=== PATIENT | male | born 1990 ===

== ENCOUNTER 2024-07-19 11:07 | Emergency (ER) | payer SELFPAY ==
[2024-07-19 11:10] VITALS: BP 117/58; PULSE 90; RESP 17; TEMP 36.6; O2SAT 100
--- NOTE | 2024-07-19 11:16 | PC.NURSE ---
Pt reports dental pain to left lower that radiates to left jaw, mild swelling noted. Reports unrelieved with Tyl/Ibuprofen
--- NOTE | 2024-07-19 12:46 | ED.DENTAL ---
HPI - Dental/Oral General Chief complaint: Dental/Oral Stated complaint: dental Time Seen by Provider: 07/19/24 11:28 History of Present Illness HPI Narrative: Patient is a 33-year-old male who presents to the emergency department this afternoon complaining of left sided dental pain. Patient states that approximately 1 week ago he had his left lower wisdom tooth extracted. He was told that he can take ibuprofen and/or Tylenol as needed for pain and patient states that he has been taking ibuprofen for the pain which has been controlling his but not completely. Patient states that he started to notice that there is a small piece of to that he can palpate in the region and feels as though when the was deemed tooth was extracted a small fragment was missed. Patient called his dentist and was scheduled for an appointment in 2.5 weeks. Patient states that He wants a referral to an oral surgeon as the dental clinic that he went to which offers free dental care rarely has a dental surgeon and he liked out the time that he went that 1 of the dentists were willing to extract the tooth. Denies any fevers or chills at home. No additional symptoms or concerns at this time. Related Data Allergies Allergy/AdvReac Type Severity Reaction Status Date / Time No Known Allergies Allergy Verified 07/19/24 11:12 Review of Systems Review of Systems: All systems are reviewed and are negative unless stated otherwise in the HPI. Exam Narrative: General: Alert, awake, afebrile, in no acute distress. HEENT: PERRL, no rhinorrhea, no post nasal drip, oropharynx clear, left lower wisdom to area appears to be urethritis, no evidence of abscess or pustular drainage, small tooth fragment embedded in the medial aspect of the gum. Cardiovascular: Regular rate and rhythm, no murmurs, rubs or gallops, no peripheral edema. Respiratory: Clear to auscultation bilaterally, no tachypnea, no wheezing, no rhonchi, no rubs, no respiratory distress. Abdomen: Soft, nontender, nondistended, no rebound, no guarding, no peritoneal signs. Musculoskeletal: No joint swelling or deformity, normal muscle tone. Skin: No rashes or petechia, no signs of infection. Neurological: Alert and oriented to person, place, and time. Follows all commands. No focal deficits, speech is clear and fluent. Course Vital Signs Vital signs: Vital Signs Temperature 97.9 F 07/19/24 11:10 Pulse Rate 90 07/19/24 11:10 Respiratory Rate 17 07/19/24 11:10 Blood Pressure 117/58 L 07/19/24 11:10 Pulse Oximetry 100 07/19/24 11:10 Oxygen Delivery Room Air 07/19/24 11:10 Temperature 98.1 F 07/19/24 12:53 Pulse Rate 89 07/19/24 12:53 Respiratory Rate 16 07/19/24 12:53 Blood Pressure 110/70 07/19/24 12:53 Pulse Oximetry 100 07/19/24 12:53 Oxygen Delivery Room Air 07/19/24 11:10 MDM - Dental/Oral MDM Narrative Medical decision making narrative: The patient was evaluated by myself in the emergency department. History is obtained from patient who is an independent historian and physical exam was performed. External medical records were reviewed at this time. Patient was provided with a list of dental surgeons per his request. Patient also informed that he will be placed on an oral antibiotic to prevent any infection and patient is agreeable. Patient states that his pain has been controlled with ibuprofen and Tylenol and he was instructed to continue with his current pain regimen. Differential diagnosis considerations include dental caries, dental abscess, retained tooth fragment. Comorbidities impacting this visit include none. I have evaluated and discussed social determinants of health with the patient that could potentially impact subsequent diagnosis and treatment plans. On repeat assessment of the patient, reevaluation revealed that the patient is doing well and is in no acute distress. Patient symptoms have improved since he arrived to our [facility]
[2024-07-19 12:53] VITALS: BP 110/70; PULSE 89; RESP 16; TEMP 36.7; O2SAT 100
== END 2024-07-19 12:55 | disposition home or self-care (01) ==
PROVIDERS: Emergency Provider Emergency Medicine
DX: K08.89 Other specified disorders of teeth and supporting structures (principal)
CPT/HCPCS: 99283

== ENCOUNTER 2025-01-02 21:54 | Emergency (ER) | payer SELFPAY ==
[2025-01-02 21:56] VITALS: BP 114/76; PULSE 88; RESP 18; TEMP 36.6; O2SAT 99
--- OUTSIDE RECORDS SUMMARY | 2025-01-02 21:56 | XMS_ITS | Continuity of Care Document ---
Author Organization [facility] Address [address] [place] [address] Phone Care Team Providers Care Network Operations Center Technician Name Role Phone Gina Sanford Unavailable Unavailable Procedures Procedure Date Diagnostic Casts No Charge Screening For Sleep Apnea Periodontal Scaling & Root Planing, 4+ t eeth, per quadrant Periodontal Scaling & Root Planing, 4+ t eeth, per quadrant Periodontal Scaling & Root Planing, 4+ t eeth, per quadrant Periodontal Scaling & Root Planing, 4+ t eeth, per quadrant Oral hygiene instruction Intra-Oral - Complete Series Of Radiogra phic Images Comprehensive Oral Evaluation-New/Est Pt Periodontal Risk Assessment Caries Risk Assess & Doc High Risk Oral Cancer Risk Assessment Oral/facial 2D photo images Screening For Sleep Apnea Surgical extr erupted tooth Surgical extr erupted tooth Limit Oral Evaluation- problem focused D Exempt From Sealant Measure Periapical Radiographic, first Image Sep Limit Oral Evaluation- problem focused S Periapical Radiographic, first Image Jun Dental Bitewing Radiographic, One Image Advance Directives Directive Yes / No Effective Date File Name No Information Encounters Encounter Description Practice Location Reason(s) For Visit Diagnoses Date Provider Providers Copied on Encounter [facility] , [address], [place], [place], [id number], [place] tel:[phone] [facility] Encounter for dental exam and cleaning w abnormal findings 5 Juvenal Fuentes. [address], [place], [place], [address] . tel:[phone] Referring Provider: Joselin Spangler, [address], [place], [address] . tel:[phone] [facility] , [address], [place], [place], [address], [place] tel:[phone] [facility] Chronic periodontitis, localized, moderateChronic periodontitis, generalized, severe 5 Juvenal Fuentes. [address], [place], [place], [id number] . tel:[phone] Referring Provider: Joselin Spangler, [address], [place], [address] . tel:[phone] [facility] , [address], [place], [place], [address], [place] tel:[phone] [facility] Chronic periodontitis, generalized, moderate 5 Juvenal Fuentes. [address], [place], [place], [address] . tel:[phone] Referring Provider: Joselin Spangler, [address], [place], [address] . tel:[phone] [facility] , [address], [place], [place], [address], [place] tel:[phone] [facility] Encounter for dental exam and cleaning w abnormal findings 5 Juvenal Fuentes. [address], [place], [place], [address] . tel:[phone] [facility] , [address], [place], [place], [address], [place] tel:[phone] [facility] Dental caries on pit and fissure surface penetrat into pulp 4 Sravan Ventura. [address], [place], [place], [address] . tel:[phone] Referring Provider: Mayco Henson, [address], [place], [address] . tel:[phone] sulting Provider: Lorenzo Hinson, [address], [place], [address] . tel:[phone] [facility] , [address], [id number], tel:[phone] [facility] Encounter for dental exam and cleaning w abnormal findings Dec-0 4 Trevor Rodriguez. [address], [id number] . tel:[phone] Referring Provider: Michael Murray, [address] [address], [place], [address] . tel:[phone] [facility] , [address], [id number], tel:[phone] [facility] Encounter for dental exam and cleaning w abnormal findingsEncounter for dental exam and cleaning w/o abnormal findings Jun-2 4 Marin Flores. [address], [id number] . tel:[phone] Referring Provider: Sandra Funes, [address] [address], [place], [address] . tel:[phone] Family History Family Member Type Diagnosis Age At Onset No Information Payers Payer name Insurance type Covered alliance party ID Authoriza tion(s) No Information Social History Type Description Quantity Date Captured Comments Sex Male Smoking Status No Information Chief Complaint And Reason For Visit No Information Reason For Referral Reason For Referral No Information History Of Present Illness Encounter Date Complaint History Of Prese nt Illness No Information Functional Status Date Functional Assessmen t No Information Instructions Date Instruction Additional Infor mation No Information Assessments Type Assessment Date No Information Patient Care Teams Name Effective Dates (start - stop) Status Members No Information
--- OUTSIDE RECORDS SUMMARY | 2025-01-02 22:09 | XMS_ITS | Continuity of Care Document ---
Author Organization [facility] Address [address] [place] [address] Phone Care Team Providers Care Chest Painting And Sealing Supervisor Name Role Phone Gina Sanford Unavailable Unavailable [...] Diagnoses Date Provider Providers Copied on Encounter [facility] , [address], [place], [place], [address], [place] tel:[phone] [facility] Encounter for dental exam and cleaning w abnormal findings 5 Juvenal Fuentes. [address], [place], [place], [address] . tel:[phone] Referring Provider: Joselin Spangler, [address], [place], [address] . tel:[phone] [facility] , [address], [place], [place], [address], [place] tel:[phone] [facility] Chronic periodontitis, localized, moderateChronic periodontitis, generalized, severe 5 Juvenal Fuentes. [address], [place], [place], [address] . tel:[phone] Referring Provider: Joselin Spangler, [address], [place], [address] . tel:[phone] [facility] , [address], [place], [place], [address], [place] tel:[phone] [facility] Chronic periodontitis, generalized, moderate 5 Juvenal Fuentes. [address], [place], [place], [address] . tel:[phone] Referring Provider: Joselin Spangler, [address], [place], [address] . tel:[phone] [facility] , [address], [place], [place], [address], [place] tel:[phone] [facility] Encounter for dental exam and cleaning w abnormal findings 5 Juvenal Fuentes. [address], [place], [place], [address] . tel:[phone] [facility] , [address], [place], [place], [address], [place] tel:[phone] [facility] Dental caries on pit and fissure surface penetrat into pulp 4 Sravan Ventura. [address], [place], [place], [address] . tel:[phone] Referring Provider: Mayco Henson, [address], [place], [address] . tel:[phone] sulting Provider: Lorenzo Hinson, [address], [place], [address] . tel:[phone] [facility] , [address], [id number], tel:[phone] [facility] Encounter for dental exam and cleaning w abnormal findings Dec-0 4 Trevor Rodriguez. [address], [id number] . tel:[phone] Referring Provider: Michael Murray, [address] [address], [place], [address] . tel:[phone] [facility] , [address], [id number], tel:[phone] [facility] Encounter for dental exam and cleaning w abnormal findingsEncounter for dental exam and cleaning w/o abnormal findings Jun-2 4 Marin Flores. [address], [id number] . tel:[phone] Referring Provider: Sandra Funes, [address] [address], [place], [address] . tel:[phone] Family History Family Member Type Diagnosis Age [...]
--- NOTE | 2025-01-02 22:18 | ED.URI ---
HPI - URI/Sore Throat General Chief Complaint: Upper Respiratory Infection Stated Complaint: Fever, cough, body aches x 3 days Time Seen by Provider: 01/02/25 22:05 Source: patient Mode of arrival: ambulatory Limitations: no limitations History of Present Illness HPI Narrative: This is a 34-year-old male with history of migraines, who presents to the emergency department complaining of diffuse body aches, fevers, cough productive of nonbloody sputum for the past 3 days. He states his child has been sick. He denies any other known sick contacts or recent travel. He denies nausea, vomiting or abdominal pain. His symptoms are improved briefly with ibuprofen and Tylenol. He has no other complaints at this time. Related Data Allergies Allergy/AdvReac Type Severity Reaction Status Date / Time No Known Allergies Allergy Verified 01/02/25 21:55 Review of Systems Review of Systems: All systems reviewed & are unremarkable except as noted in HPI and below PMFSH Past Medical History Medical History Migraine Surgical History Surgical History No significant past surgical history Social History Social History Smoking status: Current some day smoker Alcohol intake: never Substance use: never Exam Narrative: GENERAL: Well-developed, well-nourished, and in no acute distress. HEAD: Normocephalic, atraumatic. EYES: PERRLA and EOMI. ENT: Nares clear, no rhinorrhea or epistaxis. Mucous membranes moist. Oropharynx without tonsillar hypertrophy exudate or other lesions. CHEST: Clear to auscultation. No respiratory distress. Mild rhonchi noted to the bilateral posterior upper lung carter. No wheezes or rales HEART: Regular rate and rhythm. No murmur heard. Normal peripheral pulses. ABDOMEN: Soft, nontender, nondistended, normal active bowel sounds. EXTREMITIES: Normal range of motion. No edema. SKIN: Warm, dry, no rash. NEURO: Alert and oriented x3. No focal deficit. Moving all 4 limbs spontaneously PSYCH: Normal mood and affect. Course Course Emergency Course: 22:51 - The patient tested positive for flu A. Will discharge with decongestants and cough suppressants. I discussed the findings and recommendations with the patient. Discussed return and emergency precautions including signs/symptoms of ACS respiratory distress. The patient voiced understanding and agreement with the plan. All questions answered to his satisfaction. Vital Signs Vital signs: Vital Signs Temperature 97.9 F 01/02/25 21:56 Pulse Rate 88 01/02/25 21:56 Respiratory Rate 18 01/02/25 21:56 Blood Pressure 114/76 01/02/25 21:56 Pulse Oximetry 99 01/02/25 21:56 Oxygen Delivery Room Air 01/02/25 21:56 Temperature 97.9 F 01/02/25 21:56 Pulse Rate 88 01/02/25 21:56 Respiratory Rate 18 01/02/25 21:56 Blood Pressure 114/76 01/02/25 21:56 Pulse Oximetry 99 01/02/25 21:56 Oxygen Delivery Room Air 01/02/25 21:56 MDM - URI/Sore Throat MDM Narrative Medical decision making narrative: Plan: Labs, reassess Differential Diagnosis Differential diagnosis: Likely upper respiratory infection, viral infection, influenza and other (COVID, RSV, other) Lab Data Labs: Lab Results 01/02/25 Range/Units 22:02 Influenza A (RT-PCR) Positive A (Negative) Influenza B (RT-PCR) Negative (Negative) RSV (RT-PCR) Negative (Negative) SARS-CoV-2 RNA (RT-PCR) Negative (Negative) Discharge Plan Discharge Clinical Impression: Myalgia, Influenza A Patient Disposition: Home, Self-Care Condition: Stable Instructions: Antibiotic Form, Influenza (ED) Additional Instructions: You were seen in the emergency department. You tested positive for influenza A. I suspect this is the cause of your symptoms. I recommend decongestants, cough suppressants and follow-up with a primary care doctor. If you develop chest pain, difficulty breathing, loss of consciousness, persistent vomiting, or if you have other emergent concerns for life, limb, or eyesight, return to the emergency department. Patient Language: Trinidadian Prescriptions: New dextromethorphan-guaifenesin 60-1,200 mg tablet extended release 12 hr 1 tablet PO Q12H Qty: 14 0RF benzonatate 200 mg capsule 200 mg PO BID PRN (Reason: cough) Qty: 6 0RF No Action amoxicillin-pot clavulanate 875-125 mg tablet 1 tablet PO Q12H 7 Days Qty: 14 0RF Follow-up/Referrals: Keith Ramirez MD [Physician] - 2 Weeks Time of Disposition: 22:53
[2025-01-02 22:46] LABS: Influenza A QL RT-PCR Positive (Negative); Influenza B QL RT-PCR Negative (Negative); RSV RNA, RT-PCR Negative (Negative); SARS-CoV-2 RNA PCR Negative (Negative)
== END 2025-01-02 23:04 | disposition home or self-care (01) ==
PROVIDERS: Emergency Provider Preventive Medicine Aerospace Medicine
DX: J10.1 Influenza due to other identified influenza virus with other respiratory manifestations (principal); Z20.822 Contact with and (suspected) exposure to COVID-19; M79.10 Myalgia, unspecified site; F17.200 Nicotine dependence, unspecified, uncomplicated
CPT/HCPCS: 87637; 99283